=== PATIENT | male | born 1940 | race Two or more races ===

== ENCOUNTER 2017-02-05 06:28 | Day surgery (SDC) | payer MEDICARE ==
[~2017-02-05] VITALS: Ht 188 cm; Wt 86.0 kg
[2017-02-05] MEDS ORDERED: GARL500C PO (07:24)
[2017-02-05] MEDS ORDERED: ASPI325T80 PO (07:24)
[2017-02-05] MEDS ORDERED: UBID100C11 PO (07:24)
[2017-02-05] MEDS ORDERED: LISI1TAB5 PO (07:24)
[2017-02-05] MEDS ORDERED: MIDAZOLAM 1 MG/ML, 5ML ONE (07:24)
[2017-02-05] MEDS ORDERED: ATOR40TA78 PO (07:24)
[2017-02-05] MEDS ORDERED: MULT-82 PO (07:24)
[2017-02-05] MEDS ORDERED: MILK175C2 PO (07:24)
[2017-02-05] MEDS ORDERED: FENTANYL PF 100 MCG/2ML ONE (07:24)
[2017-02-05 07:25] VITALS: BP 167/93
== END 2017-02-05 08:45 | disposition home or self-care (01) ==
LOC: OUT 06:28
PROVIDERS: ATTEND Internal Medicine Gastroenterology
DX: K57.30 Diverticulosis of large intestine without perforation or abscess without bleeding (principal); K92.1 Melena; K62.7 Radiation proctitis; I10 Essential (primary) hypertension; Z86.010 Personal history of colon polyps; E78.5 Hyperlipidemia, unspecified; Z72.89 Other problems related to lifestyle
CPT/HCPCS: J2250; J3010

== ENCOUNTER 2017-05-09 08:10 | Day surgery (SDC) | payer MEDICARE ==
[~2017-05-09] VITALS: Ht 188 cm; Wt 85.0 kg
[~2017-05-09 08:10] MED LIST: ASPI325T80 PO; ATOR40TA78 PO; GARL500C PO; LISI1TAB5 PO; MILK175C2 PO; MULT-82 PO; UBID100C11 PO
[2017-05-09 08:53] VITALS: BP 137/75
== END 2017-05-09 10:50 | disposition home or self-care (01) ==
LOC: OUT 08:10
PROVIDERS: ATTEND Internal Medicine Gastroenterology
DX: K92.1 Melena (principal); K62.7 Radiation proctitis; K57.30 Diverticulosis of large intestine without perforation or abscess without bleeding; E78.5 Hyperlipidemia, unspecified; I10 Essential (primary) hypertension; Z98.890 Other specified postprocedural states; Z79.82 Long term (current) use of aspirin